=== PATIENT | male | born 1960 | race Caucasian/White ===

== ENCOUNTER 2018-01-19 06:18 | Day surgery (SDC) | payer OTHER ==
[2018-01-19] MEDS ORDERED: Sodium Chloride 0.9% 10 ML ONE (06:24)
[2018-01-19] MEDS ORDERED: Famotidine/PF 20 mg/2ml Vial ONE (06:48)
[2018-01-19] MEDS ORDERED: CEFAZOLIN 2 GM/50 ML BAG ONE (06:59)
[2018-01-19] MEDS ORDERED: Fentanyl 100 MCG/2 ML VIAL ONE ×2 (07:14→09:23)
[2018-01-19] MEDS ORDERED: Midazolam HCl 2 mg/2 ml Vial ONE (07:41)
[2018-01-19 07:57] LABS: Mean Corpuscular HGB CONC 33.9 g/dL (32.0-36.0); Mean Corpuscular Hemoglobin 30.5 pg (27.0-31.0); Mean Platelet Volume 7.6 fL (7.4-10.4); Platelet Count 214 thou/uL (130-400); RBC Distribution Width 11.6 % (11.5-14.5); White Blood Cell (WBC) Count 6.7 thou/uL (4.8-10.8)
[2018-01-19 08:07] LABS: Anion Gap 11 mmol/L (10-20); BUN (Urea Nitrogen) 19 mg/dL (8.4-25.7); Calc. Creatinine Clearance 154 mL/min (70-130); Calcium 9.6 mg/dL (7.8-10.44); Carbon Dioxide 28 mmol/L (22-29); Chloride 106 mmol/L (98-107); Estimated GFR-MDRD Greater than 90; Glucose 97 mg/dL (70-105); Sodium 140 mmol/L (136-145)
[2018-01-19] MEDS ORDERED: Promethazine HCl 25 MG/ML VIAL SLOW IVP PRN (09:23)
[2018-01-19] MEDS ORDERED: hydrALAZINE 20 MG/ML VIAL SLOW IVP PRN (09:23)
[2018-01-19] MEDS ORDERED: hydrALAZINE 20 MG/ML VIAL ONE (09:23)
[2018-01-19] MEDS ORDERED: HYDROmorphone 2 MG/ML VIAL SLOW IVP PRN (09:23)
[2018-01-19] MEDS ORDERED: Meperidine HCl/PF 25 MG/ML VIAL SLOW IVP PRN (09:23)
[2018-01-19] MEDS ORDERED: Ondansetron HCl/PF 4 MG/2 ML Vial IVP PRN (09:23)
[2018-01-19] MEDS ORDERED: Promethazine HCl 25 MG/ML VIAL IM PRN ×2 (09:23→13:13)
[2018-01-19 10:21] VITALS: BMI 34.5
--- NOTE | 2018-01-19 13:03 | OP ---
DATE OF PROCEDURE: 01/19/2018 SENIOR COURTROOM CLERK: Matti. PROCEDURES PERFORMED: 1. Anterior cervical diskectomy, C5-C6 and C6-C7 interbody arthrodesis. 2. Biomechanical device, local morselized autograft, generalized bone matrix, anterior titanium fixation, C5-C6 and C6-C7. DESCRIPTION OF PROCEDURE: The patient was brought to the operating room and intubated. He was positioned supine, gel-filled donut. An incision was made in the right precervical area and dissecting medial to the sternocleidomastoid muscle, identified the anterior cervical spinal and level was confirmed by x-ray. We placed distraction from C5-C7. Removed the intervertebral disks and using the operative microscope and microdissection techniques, completely decompressed the spinal cord and the neural elements at both affected levels. The bony endplates were then decorticated for the first arthrodesis and an appropriate-sized intervertebral biomechanical PEEK device was brought on the field, filled with demineralized bone matrix and local morselized autograft and tapped into place securely at C5-C6 and at C6-C7. Next, the anterior plate was brought into the field and secured to C5, C6, and C7 using two 14 mm screws at each level. The wounds were then extensively irrigated and adequate hemostasis was secured. The wound was closed in anatomical layers over drain. Job ID: [id number]
[2018-01-19] MEDS ORDERED: diphenhydrAMINE 50 MG/ML VIAL IVP PRN (13:13)
[2018-01-19] MEDS ORDERED: Promethazine 25 MG TAB PO PRN (13:13)
[2018-01-19] MEDS ORDERED: traMADol HCl 50 MG TAB PO PRN ×2 (13:13)
[2018-01-19] MEDS ORDERED: Morphine 4 MG/ML VIAL SLOW IVP PRN (13:13)
[2018-01-19] MEDS ORDERED: Ondansetron PF 4 MG/2 ML Vial IVP PRN (13:13)
[2018-01-19] MEDS ORDERED: Promethazine HCl 12.5 MG SUPP PR PRN (13:13)
[2018-01-19] MEDS ORDERED: Milk Of Magnesia 30 ML UDCUP PO PRN (13:13)
[2018-01-19] MEDS ORDERED: Mag-Al 1200 mg/1200 mg/30 ML UDCUP PO PRN (13:13)
[2018-01-19] MEDS ORDERED: diphenhydrAMINE 25 MG CAP PO PRN (13:13)
[2018-01-19] MEDS ORDERED: HYDROcodone/Acetaminophen 10/325 mg Tablet PO PRN ×2 (13:13)
[2018-01-19] MEDS: Sodium Chloride 0.9% 1,000 ML IV SCH (13:26)
[2018-01-19] MEDS: CEFAZOLIN 2 GM/50 ML-DEXTROSE 2 GM in Premix Bag 1 BAG IVPB SCH ×2 (13:32→22:03)
[2018-01-19] MEDS: tiZANidine HCl 4 MG TAB PO PRN (22:03)
[2018-01-20] MEDS: Sodium Chloride 0.9% 1,000 ML IV SCH (04:15)
[2018-01-20] MEDS: CEFAZOLIN 2 GM/50 ML-DEXTROSE 2 GM in Premix Bag 1 BAG IVPB SCH (06:03)
[2018-01-20] MEDS: tiZANidine HCl 4 MG TAB PO PRN (08:16)
[2018-01-20] MEDS ORDERED: Lisinopril/Hydrochlorothiazide 10 mg/12.5 mg Tablet PO SCH (09:00)
[2018-01-20 09:54] VITALS: BP 132/84; TEMP 98.2
== END 2018-01-20 09:40 | disposition home or self-care (01) ==
LOC: SDC 06:18 → SURG B 10:41 → SDC 01-20 09:40
PROVIDERS: ATTEND Neurological Surgery
PROC: 0RG2070 Fusion of 2 or more Cervical Vertebral Joints with Autologous Tissue Substitute, Anterior Approach, Anterior Column, Open Approach (ICD-10-PCS; principal; 2018-01-19)
PROC: 0RG20A0 Fusion of 2 or more Cervical Vertebral Joints with Interbody Fusion Device, Anterior Approach, Anterior Column, Open Approach (ICD-10-PCS; principal; 2018-01-19)
DX: M48.02 Spinal stenosis, cervical region (principal); M50.022 Cervical disc disorder at C5-C6 level with myelopathy; M50.023 Cervical disc disorder at C6-C7 level with myelopathy; I10 Essential (primary) hypertension; J45.909 Unspecified asthma, uncomplicated; F17.290 Nicotine dependence, other tobacco product, uncomplicated; Z79.899 Other long term (current) drug therapy
CPT/HCPCS: 76001; 80048; 85027; 93005; 93010; 96374; C1713; C1776; J0131; J0360; J1200; J2250; J3010; J3490; S0028

== ENCOUNTER 2018-02-13 10:57 | Outpatient (CLI) | payer OTHER ==
--- NOTE | 2018-02-13 11:50 | RAD ---
CERVICAL SPINE SERIES 3 VIEWS: Date: 02/13/18 HISTORY: Postop. FINDINGS: The patient has undergone anterior cervical fusion from C5 to C7. Disc implants are within the confin es of the disc levels. There is some soft tissue swelling seen superior to this level related to the postop change. IMPRESSION: Postoperative changes of the spine. POS: [facility]
== END 2018-02-13 10:58 | disposition home or self-care (01) ==
LOC: TBSIIMAG 10:57
PROVIDERS: ATTEND Neurological Surgery
DX: M54.12 Radiculopathy, cervical region (principal); Z98.1 Arthrodesis status
CPT/HCPCS: 72040

== ENCOUNTER 2018-03-25 15:51 | Outpatient (CLI) | payer OTHER ==
--- NOTE | 2018-03-25 16:27 | RAD ---
CERVICAL SPINE FIVE VIEWS: HISTORY: Status post surgery. COMPARISON: 02/13/2018 FINDINGS: No prevertebral soft tissue swelling. Predental space is normal. Straightening of normal cervical l ordosis. Cervical spine vertebral body height is maintained. There is no fracture. On the AP projection, no malalignment. Mild facet hypertrophy. On the open-mouth and [id number] views, the visualized odontoid process and the lateral masses of C1 and C2 are unremarkable. Uncomplicated cervical fusion at C5, C6, and C7. There is no perihardware lucency. No change in ali gnment with regard to anterior fusion plate. Disk prosthesis at C5-C6 and C6-C7 is noted. Stable di sk space height of the cervicothoracic junction. IMPRESSION: Stable cervical fusion from C5 through C7. POS: [facility]
== END 2018-03-25 15:52 | disposition home or self-care (01) ==
LOC: TBSIIMAG 15:51
PROVIDERS: ATTEND Neurological Surgery
DX: M48.02 Spinal stenosis, cervical region (principal); Z98.1 Arthrodesis status
CPT/HCPCS: 72040